=== PATIENT | male | born 1980 | race Caucasian/White ===

== ENCOUNTER 2016-09-29 08:01 | Emergency (ER) | payer OTHER ==
[~2016-09-29] VITALS: Ht 193 cm; Wt 120.2 kg
[~2016-09-29 08:01] MED LIST: ANUSOL-HC25 M1 RC; ESCITALOPRAM OX20 MG PO; FLEXERIL10 MG PO; GABAPENTIN400 MG PO; LITHIUM CARBON150 MG PO; LITHIUM CARBON300 M4 PO; MOBIC 15MG15 MG PO; QUETIAPINE FUM400 M1 PO; SUBOXONE 8 MG-1 EACH SL
[2016-09-29 08:15] VITALS: BP 115/75
--- NOTE | 2016-09-29 08:39 | ED HEAD/FACIAL INJ COMPLAINT ---
History of Present Illness General Chief Complaint: Laceration Procedure Stated Complaint: LAC TO LOWER LIP, S/P FALL Source: patient Exam Limitations: no limitations Vital Signs & Intake/Output Vital Signs & Intake/Output ED Intake and Output 09/30 0000 09/29 1200 Intake Total Output Total Balance Patient 265 lb Weight Allergies Coded Allergies: No Known Allergies (09/29/16) Reconcile Medications Amoxicillin 875 MG TABLET 1 TAB PO BID INFECTION Buprenorphine HCl/Naloxone HCl (Suboxone 8 MG-2 MG Sl Film) 1 EACH FILM 1 STR SL BID MAINTENCE (Reported) Carefree Carbonate 300 MG CAPSULE 1 CAP PO BID DIRECTED (Reported) Triage Note: TRIAGE: PT TO ER C/C LAC TO LOWER LIP S/P INJURY JUST LINKER UP. STATES HE SLIPPED COMING UP THE BASEMENT STAIRS AND HIT THE LIP ON THE STAIRS. -LOC. DENIES ANY OTHER INJURIES. NO ACTIVE BLEEDING NOTED AT TRIAGE. Triage Nurses Notes Reviewed? yes Onset: Abrupt Severity: moderate Location: LEFT LIP Method of Injury: fall Loss of Consciousness: no loss of consciousness Associated Symptoms: BLEEDING/SWELLING FROM LIP HPI: 36 year old male who presents with fall while going up the stairs this morning prior to arrival. He tripped over his dog. He reports that his tooth cut his lower lip. It was bleeding initially but stopped. No tooth fracture. Unsure of last tetanus status. Past History Travel History Traveled to [place] past 21 day No Medical History Any Pertinent Medical History? see below for history Neurological: NONE, seizure (benzo. withdrawal(self-report)) EENT: NONE Cardiovascular: NONE Respiratory: NONE Gastrointestinal: NONE Hepatic: NONE Renal: NONE Musculoskeletal: NONE Psychiatric: bipolar disease (recent diagnosis--[facility]), depression, insomnia, IV drug abuse (in remission, per self-report), opioid dependence (on Suboxone maintenance rx), substance abuse Endocrine: NONE Blood Disorders: NONE Cancer(s): NONE SPINE SPECIALIST/Reproductive: NONE History of MRSA: No History of VRE: No History of CDIFF: No Surgical History Surgical History: non-contributory, N Psychosocial History Who do you live with Family Services at Home None What is your primary language Setswana Tobacco Use: Current Daily Use Daily Tobacco Use Amount/Type: => 5 Cigarettes daily ETOH Use: denies use Illicit Drug Use: denies illicit drug use Family History Family History, If Any: Relation not specified for: *No pertinent family history Hx Contributory? No Review of Systems Review of Systems Constitutional: Denies: chills, fever. EENTM: Reports: mouth pain. Denies: blurred vision. Respiratory: Denies: cough, short of breath. Cardiovascular: Denies: chest pain, palpitations. GI: Denies: abdominal pain. Genitourinary: Reports: no symptoms. Musculoskeletal: Reports: no symptoms. Skin: Reports: no symptoms. Neurological/Psychological: Denies: headache. Hematologic/Endocrine: Reports: bleeding. Denies: bruising. Immunologic/Allergic: Denies: splenectomy. All Other Systems: Reviewed and Negative Physical Exam Physical Exam General Appearance: well developed/nourished, mild distress Head: swelling (LOWER LIP) Eyes: Bilateral: PERRL, EOMI. Ears, Nose, Throat: normal pharynx, normal ENT inspection, hearing grossly normal, LACERATION INSIDE LEFT LOWER LIP 4 CM, GAPING Neck: normal inspection, supple Back: normal inspection Extremities: normal inspection, normal range of motion, no edema Psychiatric: awake, alert, oriented x 3 Cranial Nerves: normal hearing, normal speech, PERRL Coordination/Gait: normal gait Motor/Sensory: no motor/sensory deficits Skin: intact, normal color, warm/dry Lymphatic: no anterior cervical neal Progress Differential Diagnosis: LIP LACERATION Plan of Care: Current Medications Sig/Senthil Start time Last Medication Dose Stop Time Status Admin Tetanus/Diphtheria 0.5 ML ONCE ONE 09/29 914 AC Toxoids Adsorbed 09/30 915 (Decavac) LACERATION REPAIR DOCUMENTED MOTRIN, TETANUS ORDERED. (TASHI VALDOVINOS,ANDRIY) Departure Departure Time of Disposition: 909 Disposition: HOME OR SELF CARE Condition: Stable Clinical Impression Primary Impression: Lip laceration Referrals: PATIENT HAS NO PRIMARY CARE DR (PCP/Family) Additional Instructions: Take the amoxicillin as directed. Motrin as needed for pain. Return as needed. Departure Forms: Customer Survey General Discharge Information Prescriptions: Current Visit Scripts Amoxicillin 1 TAB PO BID #14 TAB Procedures Laceration/Wound Repair Laceration/Wound Repair: Wound Location: LIP Wound's Depth, Shape: linear Wound Length (cm): 3 Wound Explored: clean, irrigated extensively Irrigated w/ Saline (ccs): 50 Anesthesia: 1% lidocaine Volume Anesthetic (ccs): 3 Suture Size/Type: 6:0, ABSORBABLE Number of Sutures: 2 Progress: PATIENT TOLERATED PROCEDURE WELL
[2016-09-29] MEDS ORDERED: AMOXICILLIN875 M1 PO (09:11)
== END 2016-09-29 09:15 ==
LOC: ERH 08:01
DX: S01.511A Laceration without foreign body of lip, initial encounter (principal); W01.0XXA Fall on same level from slipping, tripping and stumbling without subsequent striking against object, initial encounter; Y92.9 Unspecified place or not applicable; Y93.9 Activity, unspecified
CPT/HCPCS: 90471; 90714

== ENCOUNTER 2016-12-30 21:02 | Emergency (ER) | payer OTHER ==
[~2016-12-30] VITALS: Ht 190.5 cm; Wt 122.5 kg
[~2016-12-30 21:02] MED LIST changes: +AMOXICILLIN875 M1 PO
[2016-12-30 21:21] VITALS: BP 115/79
== END 2016-12-30 22:28 | disposition admitted as inpatient to this hospital (09) ==
LOC: ERH 21:02
DX: R47.81 Slurred speech (principal); R25.3 Fasciculation; R42 Dizziness and giddiness
CPT/HCPCS: 80307; G0480